=== PATIENT | male | born 1970 | race Hispanic/Latino ===

== ENCOUNTER 2019-06-22 15:30 | Emergency (ER) | payer MEDICARE ==
[~2019-06-22 15:30] MED LIST: ETOMIDATE 20 MG/10 ML INJ IV ONE; NALOXONE 2 MG/2 ML INJ ONE; SUCCINYLCHOLINE CHLORIDE 200 MG/10 ML INJ MDV ONE; WATER FOR INJ Sterile (PF) 10 ML ONE
[2019-06-22] MEDS ORDERED: LACTATED RINGERS 1,000 ML ONE (15:41)
[2019-06-22] MEDS ORDERED: SODIUM CHLORIDE 0.9% 1000 ML 2,000 ML ONE (15:46)
[2019-06-22] MEDS ORDERED: ETOMIDATE 20 MG/10 ML INJ IV ONE (15:50)
[2019-06-22] MEDS ORDERED: LIP THERAPY VASELINE TP PRN (15:50)
[2019-06-22] MEDS ORDERED: SUCCINYLCHOLINE CHLORIDE 200 MG/10 ML INJ MDV IV ONE (15:50)
[2019-06-22] MEDS ORDERED: MINERAL OIL/PETROLATUM, WHITE OPHTH OINT 3.5 GM OU PRN (15:50)
[2019-06-22] MEDS ORDERED: MIDAZOLAM 2 MG/2 ML INJ IV PRN (15:50)
[2019-06-22] MEDS ORDERED: SODIUM CHLORIDE 0.9% 1000 ML 1,000 ML IV ONE (15:52)
[2019-06-22] MEDS ORDERED: MIDAZOLAM 100 MG in SODIUM CHLORIDE 0.9% 80 ML IV SCH (16:00)
[2019-06-22] MEDS ORDERED: levETIRAcetam 1000 MG/NS 0.75% 1,000 MG/100 ML BAG IV ONE (16:05)
[2019-06-22] MEDS ORDERED: MANNITOL 20% 500 ML IV ONE (16:05)
--- NOTE | 2019-06-22 16:12 | Cat Scan Report ---
CT HEAD WITHOUT CONTRAST INDICATION : MAIN: CODE STROKE CALL [phone] . CVA. TECHNIQUE: Axial imaging performed from the skull apex through the skull base without the use of con trast. Sagittal and coronal reformatted images. All CT scans at this location are performed using C T dose reduction for ALARA by means of automated exposure control. COMPARISON: None FINDINGS: Parenchyma: A large intraparenchymal hemorrhage with epicenter overlying the left basal ganglia amee ures up to 7.7 x 4.8 x 4.6 cm. There is moderate surrounding edema and left to right midline shift me asuring up to 1.1 cm near the level of the frontal horns. The remaining brain parenchyma is within no rmal limits. Ventricles: Left lateral ventricle is compressed due to the large left-sided hemorrhage. There is mo derate intraventricular blood. Overall ventricular size appears normal. Bones: No acute osseous abnormality. Sinuses: Mild mucosal thickening is noted in the ethmoid air cells and right maxillary sinus. Soft tissues: Soft tissues including the orbits appear normal. IMPRESSION: Large left basal ganglia hemorrhage with intraventricular extension and midline shift as described above. These findings were discussed with Dr. Benz in the emergency department at 1406 hours EST. Signer Name: Darrius Keller Jr, MD Signed: 06/22/2019 4:08 PM Workstation Name: [id number]
[2019-06-22 16:20] LABS: Mean Corpuscular HGB Conc 30 % (32-34); Mean Corpuscular Volume 73 fl (84-94); Platelet Count 366 K/mm3 (140-440); Red Blood Count 5.03 M/mm3 (3.65-5.03); Red Cell Distribution Width 19.3 % (13.2-15.2)
[2019-06-22 16:27] LABS: Hematocrit 36.4 % (35.5-45.6); Hemoglobin 11.1 gm/dl (11.8-15.2)
--- NOTE | 2019-06-22 16:27 | Emergency Department Report ---
ED Altered Mental Status HPI - General Chief Complaint: Altered Mental Status Stated Complaint: OVERDOSE Time Seen by Provider: 06/22/19 15:49 Source: patient, EMS Mode of arrival: Stretcher Limitations: Other - History of Present Illness Initial Comments: Patient is a 48-year-old male with a past medical history of CVA who is presenting unresponsive. Patient's last known well time was approximately 1:30 PM according to paramedics. Patient was found unresponsive at home. Paramedics state that initially his pupils were pinpoint and he was given 2mg narcan which had minimal effect. It is unknown whether the patient is been compliant with his medications MD Complaint: altered mental status Treatments Prior to Arrival: intubation (an attempt at intubation was made by paramedics. They were unsuccessful. There is a 6 large amount of blood coming from the patient's mouth.) - Related Data Allergies Allergy/AdvReac Type Severity Reaction Status Date / Time No Known Allergies Allergy Verified 06/22/19 15:46 ED Review of Systems ROS: Stated complaint: OVERDOSE Other details as noted in HPI Comment: Unobtainable due to pts medical conditions ED Past Medical Hx - Past Medical History Previous Medical History?: Yes Hx Hypertension: Yes - Surgical History Past Surgical History?: No - Social History Smoking Status: Unknown if ever smoked ED Physical Exam - General Limitations: Other General appearance: obtunded - Head Head exam: Present: atraumatic, normocephalic - Eye Eye exam: Present: normal appearance, other (bilateral pupils are dilated and sluggish) - ENT ENT exam: Present: mucous membranes moist, other (is a large amount of blood coming from the mouth. The patient is breathing spontaneously and his tachypnea. Patient has minimal gag.) - Neck Neck exam: Present: normal inspection - Respiratory Respiratory exam: Present: normal lung sounds bilaterally. Absent: respiratory distress, wheezes, rales, rhonchi - Cardiovascular Cardiovascular Exam: Present: normal rhythm, tachycardia. Absent: systolic murmur, diastolic murmur, rubs, gallop - GI/Abdominal GI/Abdominal exam: Present: soft, distended, normal bowel sounds. Absent: tenderness, guarding, rebound - Rectal Rectal exam: Present: deferred - Extremities Exam Extremities exam: Present: normal inspection - Back Exam Back exam: Present: normal inspection - Neurological Exam Neurological exam: Present: altered - Psychiatric Psychiatric exam: Present: normal affect, normal mood - Skin Skin exam: Present: warm, dry, intact, normal color. Absent: rash - Level of Consciousness 1a. Level of Consciousness: coma/unresponsive - LOC Questions 1b. LOC Questions: dysarthric/intubated - LOC Command 1c. LOC Commands: performs no tasks correctly - Best Gaze 2. Best Gaze: forced deviation - Visual 3. Visual: no visual loss - Facial Palsy 4. Facial Palsy: normal symmetrical movement - Motor Arm 5a. Motor Arm Left: no drift 5b. Motor Arm Right: no drift - Motor Leg 6a. Motor Leg Left: no drift 6b. Motor Leg Right: no drift - Limb Ataxia 7. Limb Ataxia: absent - Sensory 8. Sensory: no response/quadraplegic - Best Language 9. Best Language: coma/unresponsive - Dysarthria 10. Dysarthria: mute/anarrthric - Extinction and Inattention 11. Extinction/Inattention: no abnormality - Scoring Total Score: 15 Stroke Severity: Moderate Stroke ED Course Vital Signs 06/22/19 06/22/19 15:46 16:14 Pulse Rate 155 H Respiratory 26 H Rate Blood Pressure 65/42 Blood Pressure 250/160 [Right] O2 Sat by Pulse 88 Oximetry - Reevaluation(s) Reevaluation #1: 06/22/19 16:36 Patient at this time has been accepted to [facility]. Dr. Byrd has excepted for neurosurgery and Dr. Shoemaker will be taking care of the patient in the critical care unit. - Intubation Time Out Performed: Yes Sedative: Etomidate Mg Given: 20 (initial attempt at intubation was done without sedation or paralytics. There is a large amount of blood in the oropharynx which may visualize the cords difficult and the patient also very anterior.) Paralytic: Succinylcholine Mg Given: 100 Laryngoscope: other (glidecose) Size: 4 ET Tube Size: 8 Tube Secured Depth (cm): 22 Tube Placement Confirmation: visualized tube passing t Patient Tolerated Procedure: well Intubation Complications: difficult intubation - Lab Data Result diagrams: 06/22/19 16:03 Lab Results 06/22/19 06/22/19 Range/Units 16:03 16:03 WBC 25.4 H (4.5-11.0) K/mm3 RBC 5.03 (3.65-5.03) M/mm3 Hgb 11.1 L (11.8-15.2) gm/dl Hct 36.4 (35.5-45.6) % MCV 73 L (84-94) fl MCH 22 L (28-32) pg MCHC 30 L (32-34) % RDW 19.3 H (13.2-15.2) % Plt Count 366 (140-440) K/mm3 PT 13.7 (12.2-14.9) Sec. INR 1.06 (0.87-1.13) - Radiology Data CT HEAD WITHOUT CONTRAST INDICATION : MAIN: CODE STROKE CALL [phone] . CVA. TECHNIQUE: Axial imaging performed from the skull apex through the skull base without the use of contrast. Sagittal and coronal reformatted images. All CT scans at this location are performed u sing CT dose reduction for DONATO by means of automated exposure control. COMPARISON: None FINDINGS: Parenchyma: A large intraparenchymal hemorrhage with epicenter overlying the left basal ganglia measures up to 7.7 x 4.8 x 4.6 cm. There is moderate surrounding edema and left to right midline shift measuring up to 1.1 cm near the level of the frontal horns. The remaining brain parenchyma is within normal limits. Ventricles: Left lateral ventricle is compressed due to the large left-sided hemorrhage. There is moderate intraventricular blood. Overall ventricular size appears normal. Bones: No acute osseous abnormality. Sinuses: Mild mucosal thickening is noted in the ethmoid air cells and right maxillary sinus. Soft tissues: Soft tissues including the orbits appear normal. IMPRESSION: Large left basal ganglia hemorrhage with intraventricular extension and midline shift as described above. These findings were discussed with Dr. Benz in the emergency department at 1406 hours EST. Signer Name: Darrius Keller Jr, MD Signed: 06/22/2019 4:08 PM Workstation Name: [id number] - Medical Decision Making Patient is a 48-year-old male who has been poorly compliant with his medications who is presenting altered. Patient was intubated by me. Please see procedure note. Patient was made a code stroke was sent to CT and was found to have a large intraparenchymal hemorrhage of the left basal ganglia with midline shift. Patient will be transferred to [facility] at this time for further management. Critical Care Time: Yes (30) Critical care attestation.: If time is entered above; I have spent that time in minutes in the direct care of this critically ill patient, excluding procedure time. ED Disposition Clinical Impression: Intracranial hemorrhage, Cerebral edema Disposition: DC/TX-70 ANOTHER TYPE HLTHCARE Is pt being admited?: No Does the pt Need Aspirin: No Condition: Stable Time of Disposition: 16:47
[2019-06-22 16:29] LABS: INR 1.06 (0.87-1.13)
[2019-06-22 16:35] LABS: Partial Thromboplastin Time 31.9 Sec. (24.2-36.6)
[2019-06-22 16:38] LABS: Calcium 9.1 mg/dL (8.4-10.2)
[2019-06-22 17:00] LABS: Basophils % (Manual) 0 % (0.0-1.8); Eosinophils % (Manual) 0 % (0.0-4.3); Total Cells Counted 100
[2019-06-22] MEDS ORDERED: niCARdipine 50 MG in SODIUM CHLORIDE 0.9% 250ML 230 ML IV SCH (17:00)
[2019-06-22 17:01] LABS: Anisocytosis 2+; Ovalocytes Few
[2019-06-22 17:11] VITALS: BP 258/139
--- NOTE | 2019-06-22 17:14 | XRay Report ---
CHEST 1 VIEW 06/22/2019 4:36 PM INDICATION / CLINICAL INFORMATION: neuro deficit. COMPARISON: None available. FINDINGS: SUPPORT DEVICES: None. HEART / MEDIASTINUM: No significant abnormality. LUNGS / PLEURA: No significant pulmonary or pleural abnormality. No pneumothorax. ADDITIONAL FINDINGS: No significant additional findings. IMPRESSION: 1. No acute findings. Signer Name: Karlo Swain MD Signed: 06/22/2019 5:09 PM Workstation Name: [id number]
== END 2019-06-22 18:00 | disposition other institution (70) ==
LOC: ED 15:30
DX: I62.9 Nontraumatic intracranial hemorrhage, unspecified (principal); G93.6 Cerebral edema; I10 Essential (primary) hypertension; Z86.73 Personal history of transient ischemic attack (TIA), and cerebral infarction without residual deficits
CPT/HCPCS: 31500; 36415; 51702; 70450; 71045; 80048; 82803; 84484; 85007; 85025; 85610; 85730; 93005; 93010; 96361; 96365; 96367; 96368; 96375; 99291; J0330; J1953; J2150; J2250; J2310; J7030; J7050; J7120; 80320; 94002; G0480